=== PATIENT | male | born 1955 | race Hispanic/Latino ===

== ENCOUNTER 2022-12-07 15:41 | Inpatient (IN) | payer MEDICARE ==
[~2022-12-07] VITALS: Ht 170.2 cm; Wt 63.2 kg
[2022-12-07] MEDS ORDERED: HYDROCODONE/ACETAMINOPHEN 5/325 MG TAB PO PRN (19:00)
[2022-12-07] MEDS ORDERED: GLUCAGON 1MG KIT 1 MG ML IM PRN (19:00)
[2022-12-07] MEDS ORDERED: ONDANSETRON 4MG INJ IV PRN (19:00)
[2022-12-07] MEDS ORDERED: ACETAMINOPHEN 325 MG TAB PO PRN ×3 (19:00)
[2022-12-07] MEDS ORDERED: DEXTROSE 50%-WATER 50 ML DISP.SYRIN IV PRN (19:00)
[2022-12-07] MEDS ORDERED: NITROGLYCERIN 0.4 MG SL TAB SL PRN (19:00)
[2022-12-07 19:10] LABS: BASOPHILS % (AUTO) 0.7 % (0.0-5.0); EOSINOPHILS % (AUTO) 4.2 % (0.0-8.0); HEMATOCRIT 38.2 % (42-54); LYMPHOCYTES % (AUTO) 17.3 % (21.0-51.0); MEAN CORPUSCULAR HEMOGLOBIN 26.8 pg (27.0-33.0); MEAN CORPUSCULAR HGB CONC 30.6 g/dL (32.0-36.0); MEAN CORPUSCULAR VOLUME 87.4 fL (79-99); NEUTROPHILS % (AUTO) 63.1 % (40.0-77.0); PLATELET COUNT (AUTO) 122 K/uL (130-400); RED BLOOD CELL COUNT(AUTO) 4.37 MIL/uL (4.50-6.20); WHITE BLOOD COUNT (AUTO) 4.6 K/uL (4.8-10.8)
[2022-12-07 19:17] LABS: ALBUMIN 2.1 g/dL (3.5-5.0); CREATININE 5.2 mg/dL (0.5-1.5); MAGNESIUM 2.1 mg/dL (1.80-2.40); PHOSPHORUS 4.3 mg/dL (2.5-4.9); POTASSIUM 4.1 mmol/L (3.5-5.1)
[2022-12-07 19:22] LABS: HEMOGLOBIN A1C 4.6 % (4.0-6.0)
[2022-12-07 19:40] VITALS: BP 131/67
[2022-12-07 20:14] VITALS: BP 138/68
[2022-12-07 20:20] LABS: INR 1.08 (0.85-1.15); PROTHROMBIN TIME 11.7 SEC (9.6-11.6)
[2022-12-07 20:22] LABS: PARTIAL THROMBOPLASTIN TIME 34.5 SEC (26.3-35.5)
[2022-12-07] MEDS ORDERED: ATOR10TA69 PO (20:27)
[2022-12-07] MEDS ORDERED: HYDR-3421 PO (20:27)
[2022-12-07] MEDS ORDERED: DIPH50VI13 IJ (20:27)
[2022-12-07] MEDS ORDERED: LOPE2TAB24 PO (20:27)
[2022-12-07] MEDS ORDERED: TRAZ-187 PO (20:27)
[2022-12-07] MEDS ORDERED: ONDA4AMP IJ (20:27)
[2022-12-07] MEDS ORDERED: HYDR1AMP2 IV (20:27)
[2022-12-07] MEDS ORDERED: TRAM50TA4 PO (20:27)
[2022-12-07] MEDS ORDERED: ACET325T51 PO (20:27)
[2022-12-07] MEDS ORDERED: LACT10SO9 PO (20:27)
[2022-12-07] MEDS ORDERED: SODI650T PO (20:27)
[2022-12-07] MEDS ORDERED: SEVE800T7 PO (20:27)
[2022-12-07] MEDS ORDERED: LORA10TA7 PO (20:27)
[2022-12-07] MEDS ORDERED: GLUC1VIA3 IM (20:27)
[2022-12-07] MEDS ORDERED: FAMO-290 PO (20:27)
[2022-12-07] MEDS ORDERED: HYDR100T27 PO (20:27)
[2022-12-07] MEDS ORDERED: INSU100V3 SQ (20:27)
[2022-12-07] MEDS: FAMOTIDINE 20MG TAB PO SCH (20:38)
[2022-12-07] MEDS: INSULIN HUMULIN R 100 UNIT/ML 3ML SQ SCH (20:39)
[2022-12-07] MEDS ORDERED: INSULIN HUMULIN R 100 UNIT/ML 3ML SQ SCH (21:00)
[2022-12-07] MEDS ORDERED: LACTULOSE 20 GM/30 ML UDCUP PO PRN (21:30)
[2022-12-07] MEDS ORDERED: HEPARIN 5,000 UNIT VIAL ONE (22:32)
[2022-12-07] MEDS: HYDROMORPHONE 0.5 MG SYG (0.5MG/0.5ML) IVP PRN (22:36)
[2022-12-07] MEDS: HEPARIN 25,000 UNITS/250ML D5W 250 ML IV SCH (22:41)
[2022-12-07 23:57] VITALS: BP 119/58
[2022-12-08] VITALS (21 sets, daily range): BP systolic 90–139; BP diastolic 58–82
[2022-12-08] MEDS: HYDROMORPHONE 0.5 MG SYG (0.5MG/0.5ML) IVP PRN ×6 (02:36→22:14)
[2022-12-08 04:42] LABS: BASOPHILS % (AUTO) 1.2 % (0.0-5.0); EOSINOPHILS % (AUTO) 5.5 % (0.0-8.0); HEMATOCRIT 35.8 % (42-54); LYMPHOCYTES % (AUTO) 20.5 % (21.0-51.0); MEAN CORPUSCULAR HEMOGLOBIN 26.6 pg (27.0-33.0); MEAN CORPUSCULAR HGB CONC 31.8 g/dL (32.0-36.0); MEAN CORPUSCULAR VOLUME 83.4 fL (79-99); MONOCYTES % (AUTO) 14.6 % (3.0-13.0); PLATELET COUNT (AUTO) 135 K/uL (130-400); RED BLOOD CELL COUNT(AUTO) 4.29 MIL/uL (4.50-6.20); RED CELL DISTRIBUTION WIDTH 17.7 % (11.0-15.5); WHITE BLOOD COUNT (AUTO) 4.2 K/uL (4.8-10.8)
[2022-12-08 05:24] LABS: AMMONIA 43 umol/L (11-32); ASPARTATE AMINOTRANSFERASE 14 U/L (10-37); CARBON DIOXIDE 24 mmol/L (21-32); CHLORIDE 103 mmol/L (101-111); CREATININE 5.4 mg/dL (0.5-1.5); GLOMERULAR FILTR. RATE CALC 11 mL/min (>60); GLUCOSE,RANDOM 84 mg/dL (70-105); PHOSPHORUS 4.4 mg/dL (2.5-4.9); POTASSIUM 4.2 mmol/L (3.5-5.1); SODIUM SERUM 134 mmol/L (136-145); TOTAL PROTEIN, SERUM 4.8 g/dL (6.0-8.3); UREA NITROGEN, BLOOD 32 mg/dL (7-18)
[2022-12-08 05:30] LABS: ALANINE AMINOTRANSFERASE < 6 U/L (12-78)
[2022-12-08] MEDS: INSULIN HUMULIN R 100 UNIT/ML 3ML SQ SCH ×4 (06:12→20:25)
[2022-12-08] MEDS: SODIUM BICARBONATE 650 MG TAB PO SCH ×2 (07:43→20:26)
[2022-12-08] MEDS: HYDRALAZINE 25MG TABLET PO SCH ×3 (09:00→16:12)
[2022-12-08] MEDS: SEVELAMER HCL 800 MG TABLET PO SCH ×3 (09:00→16:12)
[2022-12-08] MEDS: HYDROCODONE/ACETAMINOPHEN 5/325 MG TAB PO PRN ×3 (12:09→20:26)
[2022-12-08] MEDS: HEPARIN 5,000 UNIT VIAL IRRIG SCH ×2 (13:39→14:01)
[2022-12-08] MEDS: HEPARIN 25,000 UNITS/250ML D5W 250 ML IV SCH ×2 (15:06→23:05)
[2022-12-08] MEDS: FAMOTIDINE 20MG TAB PO SCH (20:26)
[2022-12-08 20:59] LABS: HEPATITIS B SURFACE ANTIGEN Non-Reactive (Nonreactive)
[2022-12-08] MEDS ORDERED: HYDROXYZINE 25 MG TABLET PO SCH (21:00)
[2022-12-08] MEDS ORDERED: ATORVASTATIN 10 MG TABLET PO SCH (21:00)
[2022-12-08] MEDS ORDERED: TRAZODONE HCL 100 MG TABLET PO SCH (21:00)
[2022-12-09] VITALS: BP 128/68
[2022-12-09] MEDS: HYDROCODONE/ACETAMINOPHEN 5/325 MG TAB PO PRN (00:55)
[2022-12-09 04:00] VITALS: BP 136/58
[2022-12-09] MEDS: HYDROMORPHONE 0.5 MG SYG (0.5MG/0.5ML) IVP PRN ×2 (04:35→10:43)
[2022-12-09] MEDS: INSULIN HUMULIN R 100 UNIT/ML 3ML SQ SCH ×2 (05:49→11:30)
[2022-12-09 08:00] VITALS: BP 92/53
[2022-12-09] MEDS: SEVELAMER HCL 800 MG TABLET PO SCH (08:01)
[2022-12-09] MEDS: SODIUM BICARBONATE 650 MG TAB PO SCH (08:01)
[2022-12-09] MEDS: HYDRALAZINE 25MG TABLET PO SCH ×2 (08:02→08:09)
[2022-12-09] MEDS ORDERED: LORATADINE 10 MG TABLET PO SCH (09:00)
[2022-12-09] MEDS: APIXABAN 2.5 MG TABLET PO SCH ×2 (10:22→11:21)
[2022-12-09] MEDS ORDERED: HYDR-4154 PO (11:26)
[2022-12-09] MEDS ORDERED: HYDR-4060 PO (11:26)
[2022-12-09 11:29] VITALS: BP 118/67
== END 2022-12-09 13:17 | disposition home or self-care (01) | DRG 299 ==
LOC: 2DH 17:31
PROVIDERS: ADMIT Internal Medicine; ATTEND Internal Medicine
DX: E11.52 Type 2 diabetes mellitus with diabetic peripheral angiopathy with gangrene (principal); N18.6 End stage renal disease; R18.8 Other ascites; I12.0 Hypertensive chronic kidney disease with stage 5 chronic kidney disease or end stage renal disease; E44.0 Moderate protein-calorie malnutrition; C22.9 Malignant neoplasm of liver, not specified as primary or secondary; I96 Gangrene, not elsewhere classified; E87.1 Hypo-osmolality and hyponatremia; I42.8 Other cardiomyopathies; E11.51 Type 2 diabetes mellitus with diabetic peripheral angiopathy without gangrene; I99.8 Other disorder of circulatory system; E11.22 Type 2 diabetes mellitus with diabetic chronic kidney disease; K74.60 Unspecified cirrhosis of liver; D63.1 Anemia in chronic kidney disease; E78.5 Hyperlipidemia, unspecified; Z99.2 Dependence on renal dialysis; Z82.49 Family history of ischemic heart disease and other diseases of the circulatory system; Z83.3 Family history of diabetes mellitus; Z85.05 Personal history of malignant neoplasm of liver; Z91.199 Patient's noncompliance with other medical treatment and regimen due to unspecified reason; Z68.21 Body mass index [BMI] 21.0-21.9, adult
CPT/HCPCS: 36415; 80053; 82140; 82948; 83036; 83735; 84100; 85025; 85610; 85730; 86704; 86706; 87340; 87635; 90935; 93005; 93306; 93931; G0378; J1170; J1644